=== PATIENT | female | born 1970 | race African-American/Black ===

== ENCOUNTER 2022-03-25 12:28 | Outpatient (CLI) | payer BC | END 2022-03-25 12:29 | disposition home or self-care (01) | LOC: CSHMAMMO 12:28 | PROVIDERS: ATTEND Family Medicine | DX: Z12.31 Encounter for screening mammogram for malignant neoplasm of breast (principal); Z80.3 Family history of malignant neoplasm of breast | CPT/HCPCS: 77063; 77067 ==

== ENCOUNTER 2022-10-06 09:07 | Outpatient (CLI) | payer BC ==
[2022-10-06] MEDS ORDERED: Iopamidol 300 61% 100 ML VIAL FS ONE (15:20)
== END 2022-10-06 09:08 | disposition home or self-care (01) ==
LOC: CSHCT 09:07
PROVIDERS: ATTEND Otolaryngology
DX: K11.20 Sialoadenitis, unspecified (principal); K11.8 Other diseases of salivary glands
CPT/HCPCS: 70491; Q9967

== ENCOUNTER 2024-01-19 12:26 | Outpatient (CLI) | payer BC | END 2024-01-19 12:27 | disposition home or self-care (01) | LOC: CSHMAMMO 12:26 | PROVIDERS: ATTEND Family Medicine | DX: Z12.31 Encounter for screening mammogram for malignant neoplasm of breast (principal); Z80.3 Family history of malignant neoplasm of breast | CPT/HCPCS: 77063; 77067 ==